=== PATIENT | male | born 1950 | race Caucasian/White ===

== ENCOUNTER 2022-08-16 11:55 | Day surgery (SDC) | payer OTHER ==
--- NOTE | 2022-08-10 10:44 | RAD REPORT ---
EXAM DESCRIPTION: RAD - Chest Pa And Lat (2 Views) - 08/10/2022 10:34 am CLINICAL HISTORY: Pre op pending heart cath Chest pain. COMPARISON: Chest Pa And Lat (2 Views) dated 08/08/2017; Chest Pa And Lat (2 Views) dated 07/31/2017; C hest Pa And Lat (2 Views) dated 08/31/2016; Abdomen 1 View (KUB) dated 08/15/2016 TECHNIQUE: PA and lateral views of the chest were obtained. FINDINGS: The lungs are hyperexpanded compatible with COPD. The heart is upper limit of normal in si ze. No fracture or aggressive bony process. IMPRESSION: COPD without acute process identified. The USPSTF recommends annual screening for lung cancer with low-dose CT (LDCT) in adults aged 50 to 8 0 years who have a 20 pack-year smoking history and currently smoke or have quit within the past 15 y ears.
--- NOTE | 2022-08-10 10:46 | EKG ---
Test Date: 2022-08-10 Test Time: 10:21:28 Fuel Agent: NATHALIE MEASUREMENT RESULTS: Intervals: Rate: 53 ND: 176 QRSD: 86 QT: 410 QTc: 384 [place]: P: 41 ND: 176 QRS: 22 T: 69 INTERPRETIVE STATEMENTS: Sinus bradycardia Otherwise normal ECG No previous ECG available for comparison Electronically Signed On 08-10-22 10:46:20 [employer] by Telly Hanks
[2022-08-10 11:54] LABS: Hematocrit 32.9 % (39.6-49.0); Lymphocytes % 25.4 % (15.3-44.8); MCV 110.8 fL (80-100); RBC Red Blood Cell Count 2.97 M/uL (4.33-5.43)
[2022-08-10 11:58] LABS: Protime INR 1.06
[2022-08-10 12:11] LABS: Potassium 4.6 mmol/L (3.5-5.1)
[2022-08-10 13:07] LABS: Anisocytosis SLIGHT; Blood Morphology Comment NOTED (NOT SEEN); Macrocytosis SLIGHT; Platelet Estimate ADEQ; White Blood Cell Scan OK (OK)
[~2022-08-16 11:55] MED LIST: ASPIRIN 325 MG TAB ONE; ATROPINE SULF 1 MG/10 ML SYR IV ONE; CLOPIDOGREL 75 MG TABLET ONE; FENTANYL CITR 100 MCG/2 ML ONE; HEPA 1000U/500MLS 0 UNIT/0 ML BAG IV ONE; HEPA 1000U/500MLS 2,000 UNIT/1,000 ML BAG IV ONE; HEPARIN 10,000 UNIT/10 ML VIAL IV ONE; HEPARIN 5000 UNIT/ML 1 ML VIAL ONE; LIDOCAINE 1% 20 ML MDV ONE; MIDAZOLAM HCL 2 MG/2 ML INJ ONE; NITROGLYCERIN 100 MCG/ML SYR (for cath lab use only) IV ONE; NITROGLYCERIN/D5W 25 MG/250 ML BTL IV ONE; TICAGRELOR 90 MG TABLET PO ONE; VERAPAMIL HCL 10 MG/4 ML VIAL IV ONE
[2022-08-16] MEDS ORDERED: NA CHLORIDE 0.9% 0 ML ONE (12:01)
[2022-08-16] MEDS ORDERED: NA CHLORIDE 0.9% 500 ML ONE (12:02)
[2022-08-16 12:24] VITALS: TEMP 97.3
--- NOTE | 2022-08-16 13:45 | OP ---
Date of Procedure: 08/16/2022 Surgeon: LATASHA HOLT Procedures Performed: 1.Selective coronary angiogram. 2.Left heart catheterization. Indication: Chest pain with abnormal stress test. Access: Right radial artery 6-German closed with TR band. Complications: None. Bleeding: Less than 10 mL. Anesthesia: Total sedation time was 35 minutes, used fentanyl and Versed. Description Of Procedure: After risks, benefits, alternatives were explained, the patient agreed to procedure and signed informed consent. The patient was brought into the cardiac catheterization [facility], prepped and draped in the usual sterile fashion. Then, I accessed right radial artery using pediatric micropuncture kit and placed a 6-German Slender sheath and took a 5-German [place] 4.0 cathet er into the aortic root, engaged left main and right coronary artery, took standard views. Then, the catheter was pushed over the wire into the LV, measured LVEDP. Pullback did not recording gradient and the catheter was removed and sheath was removed, and placed TR band with good hemostasis. Findings: 1.Left main is normal, moderate size. 2.LAD; moderate-size, proximal luminal irregularities, mid diffuse 60% to 70% and then after diagona l 2 branch, there was a focal 80% to 90% stenosis of the vessels, small about 2 mm. 3.Left circumflex; ostial 80% stenosis, then luminal irregularities. 4.RCA; large and dominant, proximal 50%, mid 50%, and distal 80% to 90%, and luminal irregularities in the PLB and PDA. 5.Normal LVEDP at 12 mmHg. Conclusion: 1.Severe multivessel coronary artery disease. 2.Normal LVEDP. Recommendation: Evaluation for bypass surgery; however, the patient is hesitant to go for open-heart surgery. If he refuses, then we will plan for staged multivessel PCI. SR/MODL Voice ID: [id number] Report ID: [id number]
[2022-08-16 14:56] VITALS: BP 137/71; O2SAT 98
== END 2022-08-16 14:58 | disposition home or self-care (01) ==
LOC: CCL 11:55
PROVIDERS: ATTEND Internal Medicine
DX: I25.10 Atherosclerotic heart disease of native coronary artery without angina pectoris (principal); I10 Essential (primary) hypertension; E78.5 Hyperlipidemia, unspecified; Z87.891 Personal history of nicotine dependence; Z79.82 Long term (current) use of aspirin; Z79.899 Other long term (current) drug therapy; Z91.09 Other allergy status, other than to drugs and biological substances
CPT/HCPCS: 93005; 85025; 80048; 36415; 85610; 85730; 71046; 93458; 76937; C1893; Q9966; J2001; J1644 ×2; J2250; J3010; J7040; J0461